=== PATIENT | male | born 1980 | race Caucasian/White ===

== ENCOUNTER 2018-01-15 07:44 | Emergency (ER) | payer OTHER, SELFPAY | END 2018-01-15 08:57 | PROVIDERS: Emergency Provider Emergency Medicine; Family Provider Physician Assistant Medical; Visit Provider Emergency Medicine | DX: R07.89 Other chest pain (principal) | CPT/HCPCS: 71010; 71045; 80053; 82150; 83690; 83735; 84484; 85025; 85379; 85610; 85730; 93005; 93010; 96360; 99058; 99285 ==